=== PATIENT | female | born 1935 | race Caucasian/White ===

== ENCOUNTER → 2020-08-24 | Outpatient (CLI) | payer MEDICARE | END | disposition home or self-care (01) | LOC: US 14:29 | PROVIDERS: ATTEND Internal Medicine | DX: M79.605 Pain in left leg (principal); M79.9 Soft tissue disorder, unspecified ==

== ENCOUNTER 2023-12-18 17:20 | Inpatient (IN) | payer OTHER ==
[~2023-12-18 17:20] MED LIST: ALPRAZOLAM0.25 M2 PO; AMBIEN5 MG PO; AMLODIPINE BES2.5 MG PO; ASPIRIN ADULT L81 M2 PO; ATORVASTATIN CA10 M1 PO; LISINOPRIL40 MG PO; METHOCARBAMOL500 M1 PO; OMNICEF300 MG PO; OXYCODONE-ACET1 EACH PO; PANTOPRAZOLE SO40 MG PO; PREDNISONE5 MG PO
[2023-12-18] MEDS ORDERED: MORPHINE Sulfate 2 MG/ML SYR IV PRN (17:55)
[2023-12-18] MEDS ORDERED: Ondansetron Hydrochloride 4 MG/2 ML VIAL IV PRN (18:00)
[2023-12-18] MEDS ORDERED: LORazepam 0.5 MG TAB PO PRN (18:00)
[2023-12-18 20:00] VITALS: BP 144/56; BP 154/91
[2023-12-18] MEDS ORDERED: MORPHINE Sulfate 2 MG/ML SYR IV SCH (20:00)
[2023-12-18] MEDS ORDERED: ZOLPIDEM TARTRATE 5 MG TAB PO SCH (22:00)
[2023-12-18] MEDS ORDERED: CLOTRIMAZOLE 10 MG LOZENGE PO SCH (22:00)
[2023-12-19] VITALS: BP 154/91
[2023-12-19 08:00] VITALS: BP 140/59
[2023-12-19 12:00] VITALS: BP 138/61
[2023-12-19] MEDS ORDERED: MORPHINE Sulfate 2 MG/ML SYR IV SCH (12:00)
[2023-12-19 16:00] VITALS: BP 134/61
[2023-12-19] MEDS ORDERED: Morphine Sulfate 10 MG/0.5 ML CONCENTRATE ORAL SYRINGE PO PRN (18:00)
[2023-12-19 20:00] VITALS: BP 130/61; BP 131/57; BP 133/64
[2023-12-19] MEDS ORDERED: MORPHINE Sulfate 30 MG TAB PO SCH (22:00)
[2023-12-20] VITALS: BP 123/68
[2023-12-20 08:00] VITALS: BP 125/75
[2023-12-20 12:00] VITALS: BP 135/66
[2023-12-20 16:00] VITALS: BP 144/62
[2023-12-20] MEDS ORDERED: Ondansetron Hydrochloride 4 MG TAB PO PRN (17:01)
[2023-12-20 20:00] VITALS: BP 146/64
[2023-12-21 00:18] VITALS: BP 152/71
[2023-12-21 08:00] VITALS: BP 146/70
[2023-12-21] MEDS ORDERED: LORazepam 1 MG TAB SL PRN (09:40)
[2023-12-21] MEDS ORDERED: Morphine Sulfate 10 MG/0.5 ML CONCENTRATE ORAL SYRINGE SL PRN (09:40)
[2023-12-21] MEDS ORDERED: Morphine Sulfate 10 MG/0.5 ML CONCENTRATE ORAL SYRINGE PO PRN (09:41)
[2023-12-21] MEDS ORDERED: LORazepam 1 MG TAB SL SCH (10:00)
[2023-12-21] MEDS ORDERED: Morphine Sulfate 10 MG/0.5 ML CONCENTRATE ORAL SYRINGE SL SCH (10:00)
[2023-12-21 12:00] VITALS: BP 142/70
[2023-12-21 16:00] VITALS: BP 139/61
[2023-12-21 20:00] VITALS: BP 139/67
[2023-12-21 23:40] VITALS: BP 62/40
== END 2023-12-22 04:10 | DRG 682 ==
LOC: 4E 17:20
PROVIDERS: ADMIT Family Medicine; ATTEND Family Medicine
DX: N17.0 Acute kidney failure with tubular necrosis (principal); E43 Unspecified severe protein-calorie malnutrition; N39.0 Urinary tract infection, site not specified; M17.11 Unilateral primary osteoarthritis, right knee; Z51.5 Encounter for palliative care; D64.9 Anemia, unspecified; E53.8 Deficiency of other specified B group vitamins; K21.9 Gastro-esophageal reflux disease without esophagitis; I10 Essential (primary) hypertension; B95.2 Enterococcus as the cause of diseases classified elsewhere; F41.9 Anxiety disorder, unspecified; D47.3 Essential (hemorrhagic) thrombocythemia; Z68.21 Body mass index [BMI] 21.0-21.9, adult